=== PATIENT | female | born 1995 | race African-American/Black ===

== ENCOUNTER 2017-01-23 11:41 | Emergency (ER) | payer MEDICAID ==
[2017-01-23 13:25] LABS: BASOPHILS 0.2 % (0-2); EOSINOPHILS 0.3 % (0-7); HEMATOCRIT 33.1 % (36.0-48.0); HEMOGLOBIN 10.7 g/dL (12-16); IMMATURE GRANULOCYTES 0.4 % (0-5); LYMPHOCYTES 13.7 % (15-50); MCH 22.5 pg (26.0-34.0); MCHC 32.3 g/dL (31.0-37.0); MCV 69.7 fL (80.0-100.0); MEAN PLATELET VOLUME 9.9 fL (7.4-10.4); MONOCYTES 13.5 % (2-11); NEUTROPHILS 71.9 % (40-80); PLATELET COUNT 331 10x3/uL (130-400); RBC 4.75 10x6/uL (4.00-5.40); RDW 16.9 % (11.5-14.5); WBC 11.3 10x3/uL (4.8-10.8)
[2017-01-23 13:34] LABS: APPEARANCE CLOUDY (CLEAR); COLOR YELLOW (YELLOW)
[2017-01-23 13:35] LABS: BACTERIA MODERATE /hpf (NONE SEEN); BILIRUBIN NEGATIVE (NEGATIVE); GLUCOSE NEGATIVE (NEGATIVE); KETONE MODERATE mg/dL (NEGATIVE); MUCUS <1+ /lpf (NONE SEEN); NITRITE NEGATIVE (NEGATIVE); PROTEIN TRACE mg/dL (NEGATIVE); RED CELLS - URINE 0-5 /hpf (0-5); YEAST >1+ WITH HYPHAE /hpf (NONE SEEN)
[2017-01-23 13:46] LABS: ALBUMIN 3.6 g/dL (3.4-5.0); ALKALINE PHOSPHATASE 161 U/L (46-116); ALT (SGPT) 218 U/L (10-68); BILIRUBIN - TOTAL 0.63 mg/dL (0.2-1.3); CALC OSMOLALITY 259 mosm/kg (275-300); CALCIUM 9.4 mg/dL (8.5-10.1); CARBON DIOXIDE 24.9 mmol/L (21.0-32.0); CHLORIDE - SERUM 98 mmol/L (98-107); CREATININE - SERUM 0.6 mg/dL (0.6-1.3); GLUCOSE 98 mg/dL (74-106); POTASSIUM - SERUM 3.6 mmol/L (3.5-5.1); PROTEIN - SERUM 8.1 g/dL (6.4-8.2); SODIUM 131 mmol/L (136-145); UREA NITROGEN 5 mg/dL (7-18); eGFR NON AFRICAN AMERICAN > 90 mL/min (90-120)
[2017-01-23 14:08] LABS: HCG - QUANTITATIVE (MATERNAL) 109651 mIU/mL
== END 2017-01-23 13:50 | disposition home or self-care (01) ==
LOC: D.ER 11:41
PROVIDERS: Emergency Medicine; Nurse Practitioner Family
DX: O23.41 Unspecified infection of urinary tract in pregnancy, first trimester (principal); Z3A.09 9 weeks gestation of pregnancy; R11.2 Nausea with vomiting, unspecified

== ENCOUNTER 2017-03-03 13:09 | Emergency (ER) | payer MEDICAID | END 2017-03-03 15:32 | disposition home or self-care (01) | LOC: D.ER 13:09 | DX: S00.81XA Abrasion of other part of head, initial encounter (principal); Y04.2XXA Assault by strike against or bumped into by another person, initial encounter; Y93.89 Activity, other specified; Y92.89 Other specified places as the place of occurrence of the external cause; R51 Headache ==

== ENCOUNTER → 2017-08-10 07:56 | Outpatient (CLI) | payer MEDICAID ==
[2017-08-10 08:45] LABS: APPEARANCE HAZY (CLEAR); BILIRUBIN NEGATIVE (NEGATIVE); COLOR YELLOW (YELLOW); GLUCOSE NEGATIVE (NEGATIVE); KETONE NEGATIVE (NEGATIVE); NITRITE NEGATIVE (NEGATIVE); PROTEIN NEGATIVE (NEGATIVE); UROBILINOGEN NORMAL (NORMAL)
[2017-08-10 08:51] LABS: BACTERIA MODERATE /hpf (NONE SEEN); EPITHELIAL CELLS 0-5 /hpf (0-5); RED CELLS - URINE 0-5 /hpf (0-5)
[2017-08-24 15:32] VITALS: BMI 29.4
== END | disposition home or self-care (01) ==
LOC: D.LDO 07:56
PROVIDERS: Obstetrics & Gynecology
DX: O26.893 Other specified pregnancy related conditions, third trimester (principal); Z3A.37 37 weeks gestation of pregnancy; R10.2 Pelvic and perineal pain; M54.5 Low back pain; R11.2 Nausea with vomiting, unspecified

== ENCOUNTER 2017-08-24 09:24 | Inpatient (IN) | payer MEDICAID ==
[~2017-08-24] VITALS: Ht 175.3 cm; Wt 90.3 kg
[2017-08-24 10:18] VITALS: BP 115/75
[2017-08-24 10:42] LABS: HEMATOCRIT 32.7 % (36.0-48.0); HEMOGLOBIN 10.6 g/dL (12-16); MCH 25.8 pg (26.0-34.0); MCHC 32.4 g/dL (31.0-37.0); MCV 79.6 fL (80.0-100.0); MEAN PLATELET VOLUME 10.5 fL (7.4-10.4); RBC 4.11 10x6/uL (4.00-5.40); RDW 15.3 % (11.5-14.5); WBC 13.9 10x3/uL (4.8-10.8)
[2017-08-24 15:32] VITALS: Ht 175.3 cm; Wt 90.3 kg
[2017-08-24 18:33] LABS: APPEARANCE CLOUDY (CLEAR); BACTERIA MODERATE /hpf (NONE SEEN); BILIRUBIN NEGATIVE (NEGATIVE); COLOR YELLOW (YELLOW); GLUCOSE NEGATIVE (NEGATIVE); KETONE LARGE mg/dL (NEGATIVE); MUCUS <1+ /lpf (NONE SEEN); NITRITE NEGATIVE (NEGATIVE); PROTEIN NEGATIVE (NEGATIVE); RED CELLS - URINE >50 /hpf (0-5); UROBILINOGEN NORMAL (NORMAL)
[2017-08-24 18:36] LABS: UDS - AMPHET NEGATIVE QUAL (NEGATIVE); UDS - BARB NEGATIVE QUAL (NEGATIVE); UDS - BENZO NEGATIVE QUAL (NEGATIVE); UDS - COCAINE NEGATIVE QUAL (NEGATIVE); UDS - OPIATE NEGATIVE QUAL (NEGATIVE); UDS - PCP NEGATIVE QUAL (NEGATIVE); UDS - THC NEGATIVE QUAL (NEGATIVE)
[2017-08-24 21:58] VITALS: BP 106/45
[2017-08-25 04:41] LABS: HEMATOCRIT 29.2 % (36.0-48.0); HEMOGLOBIN 9.4 g/dL (12-16); MCH 25.5 pg (26.0-34.0); MCHC 32.2 g/dL (31.0-37.0); MCV 79.3 fL (80.0-100.0); MEAN PLATELET VOLUME 10.4 fL (7.4-10.4); PLATELET COUNT 248 10x3/uL (130-400); RBC 3.68 10x6/uL (4.00-5.40); RDW 15.4 % (11.5-14.5)
[2017-08-25 04:59] LABS: EOSINOPHILS 1 % (0-7); LYMPHOCYTES 13 % (15-50); MONOCYTES 9 % (2-11); NEUTROPHILS 77 % (40-80); PLATELET ESTIMATE NORMAL
[2017-08-25 07:57] VITALS: BP 100/53
[2017-08-25 19:13] VITALS: BP 121/56
[2017-08-25 19:32] LABS: BASOPHILS 0.1 % (0-2); EOSINOPHILS 0.8 % (0-7); HEMATOCRIT 30.5 % (36.0-48.0); HEMOGLOBIN 9.8 g/dL (12-16); IMMATURE GRANULOCYTES 0.5 % (0-5); LYMPHOCYTES 17.6 % (15-50); MCH 25.7 pg (26.0-34.0); MCHC 32.1 g/dL (31.0-37.0); MCV 79.8 fL (80.0-100.0); MEAN PLATELET VOLUME 10.2 fL (7.4-10.4); MONOCYTES 12.3 % (2-11); NEUTROPHILS 68.7 % (40-80); PLATELET COUNT 258 10x3/uL (130-400); RBC 3.82 10x6/uL (4.00-5.40); RDW 15.5 % (11.5-14.5)
[2017-08-27 07:24] LABS: RAPID PLASMA REAGIN Non Reactive (Non Reactive)
== END 2017-08-25 21:09 | disposition home or self-care (01) | DRG 774 ==
LOC: D.LABREF 09:24 → D.LD 09:31
PROVIDERS: Obstetrics & Gynecology
PROC: 10E0XZZ Delivery of Products of Conception, External Approach (ICD-10-PCS; principal; 2017-08-24)
PROC: 0KQM0ZZ Repair Perineum Muscle, Open Approach (ICD-10-PCS; 2017-08-24)
DX: O42.92 Full-term premature rupture of membranes, unspecified as to length of time between rupture and onset of labor (principal); O98.32 Other infections with a predominantly sexual mode of transmission complicating childbirth; O99.214 Obesity complicating childbirth; Z3A.39 39 weeks gestation of pregnancy; Z37.0 Single live birth

== ENCOUNTER 2018-10-07 08:04 | Emergency (ER) | payer MEDICAID ==
[~2018-10-07] VITALS: Ht 175.3 cm; Wt 86.4 kg
[2018-10-07 08:08] VITALS: Ht 175.3 cm; Wt 86.4 kg
[2018-10-07] MEDS ORDERED: PRENAVITE1 TAB PO (08:09)
[2018-10-07 09:01] LABS: BASOPHILS 0.2 % (0-2); EOSINOPHILS 2.8 % (0-7); HEMATOCRIT 29.6 % (36.0-48.0); HEMOGLOBIN 9.4 g/dL (12-16); IMMATURE GRANULOCYTES 0.1 % (0-5); LYMPHOCYTES 34.2 % (15-50); MCH 21.1 pg (26.0-34.0); MCHC 31.8 g/dL (31.0-37.0); MCV 66.5 fL (80.0-100.0); MEAN PLATELET VOLUME 9.3 fL (7.4-10.4); MONOCYTES 10.6 % (2-11); NEUTROPHILS 52.1 % (40-80); PLATELET COUNT 357 10x3/uL (130-400); RBC 4.45 10x6/uL (4.00-5.40); RDW 17.8 % (11.5-14.5)
[2018-10-07 09:09] LABS: CHLORIDE - SERUM 104 mmol/L (98-107); POTASSIUM - SERUM 3.6 mmol/L (3.5-5.1); SODIUM 137 mmol/L (136-145)
[2018-10-07 09:17] LABS: APPEARANCE HAZY (CLEAR); BACTERIA MODERATE /hpf (NONE SEEN); BILIRUBIN NEGATIVE (NEGATIVE); COLOR YELLOW (YELLOW); GLUCOSE NEGATIVE (NEGATIVE); KETONE NEGATIVE (NEGATIVE); MUCUS <1+ /lpf (NONE SEEN); NITRITE NEGATIVE (NEGATIVE); PROTEIN TRACE mg/dL (NEGATIVE); SPECIFIC GRAVITY 1.015 (1.005-1.020); UROBILINOGEN NORMAL (NORMAL); WHITE CELLS - URINE 0-5 /hpf (0-5)
[2018-10-07 09:19] LABS: CALC OSMOLALITY 269 mosm/kg (275-300); CALCIUM 8.7 mg/dL (8.5-10.1); CARBON DIOXIDE 24.2 mmol/L (21.0-32.0); CREATININE - SERUM 0.6 mg/dL (0.6-1.3); GLUCOSE 88 mg/dL (74-106); HCG - QUANTITATIVE (MATERNAL) 30648 mIU/mL; UREA NITROGEN 5 mg/dL (7-18); eGFR NON AFRICAN AMERICAN > 90 mL/min (90-120)
[2018-10-07] MEDS ORDERED: FERROUS GLUCON324 MG PO (10:16)
[2018-10-07] MEDS ORDERED: MACRODANTIN100 MG PO (10:21)
[2018-10-07 10:29] VITALS: BP 120/70
[2018-10-07 10:39] LABS: % SATURATION 4 % (15-55); IRON 20 ug/dl (35-150); TOTAL IRON BIND CAPACITY 423 ug/dl (260-445); UNSAT IRON BIND CAPACITY 403 ug/dl (150-375)
== END 2018-10-07 10:31 | disposition home or self-care (01) ==
LOC: D.ER 08:04
PROVIDERS: Emergency Medicine
DX: O20.0 Threatened abortion (principal); Z3A.01 Less than 8 weeks gestation of pregnancy; D64.9 Anemia, unspecified; A59.9 Trichomoniasis, unspecified

== ENCOUNTER → 2019-03-27 14:18 | Outpatient (CLI) | payer MEDICAID ==
[2018-10-07 08:08] VITALS: BMI 28.1
[~2019-03-27 14:18] MED LIST: FERROUS GLUCON324 MG PO; MACRODANTIN100 MG PO; PRENAVITE1 TAB PO
[2019-03-27 15:11] LABS: APPEARANCE CLEAR (CLEAR); BILIRUBIN NEGATIVE (NEGATIVE); COLOR YELLOW (YELLOW); GLUCOSE NEGATIVE (NEGATIVE); KETONE NEGATIVE (NEGATIVE); NITRITE NEGATIVE (NEGATIVE); PROTEIN TRACE mg/dL (NEGATIVE); SPECIFIC GRAVITY 1.015 (1.005-1.020); UROBILINOGEN NORMAL (NORMAL)
[2019-03-27 15:14] LABS: BACTERIA FEW /hpf (NEGATIVE); EPITHELIAL CELLS 0-5 /hpf (0-5); RED CELLS - URINE OCC /hpf (0-5); WHITE CELLS - URINE OCC /hpf (NEGATIVE)
== END | disposition home or self-care (01) ==
LOC: D.LDO 14:18
PROVIDERS: ATTEND Obstetrics & Gynecology
DX: O26.899 Other specified pregnancy related conditions, unspecified trimester (principal); Z3A.00 Weeks of gestation of pregnancy not specified; R10.9 Unspecified abdominal pain

== ENCOUNTER 2019-04-07 16:33 | Outpatient (CLI) | payer MEDICAID ==
[2018-10-07 08:08] VITALS: BMI 28.1
[2019-04-08] MEDS ORDERED: FLAGYL500 MG (01:47)
== END 2019-04-07 20:08 | disposition home or self-care (01) ==
LOC: D.LDO 16:33
PROVIDERS: ATTEND Obstetrics & Gynecology
DX: O26.899 Other specified pregnancy related conditions, unspecified trimester (principal); Z3A.00 Weeks of gestation of pregnancy not specified; R19.7 Diarrhea, unspecified

== ENCOUNTER 2019-04-08 00:33 | Inpatient (IN) | payer MEDICAID ==
[~2019-04-08] VITALS: Ht 175.3 cm; Wt 94.8 kg
[2019-04-08] MEDS ORDERED: FLAGYL500 MG (01:47)
[2019-04-08 02:49] VITALS: BP 132/73; Ht 175.3 cm; Wt 94.8 kg
--- NOTE | 2019-04-08 02:57 | NUR ---
ADMISSION ASSESSMENT, HISTORY AND MED REC COMPLETED
[2019-04-08 03:09] LABS: HEMATOCRIT 29.8 % (36.0-48.0); HEMOGLOBIN 9.5 g/dL (12-16); MCH 23.9 pg (26.0-34.0); MCHC 31.9 g/dL (31.0-37.0); MCV 75.1 fL (80.0-100.0); MEAN PLATELET VOLUME 10.6 fL (7.4-10.4); RBC 3.97 10x6/uL (4.00-5.40); WBC 19.4 10x3/uL (4.8-10.8)
--- NOTE | 2019-04-08 03:25 | NUR ---
CONSENT SIGNED AND WITNESS PER THIS RN AND LAURI CARDENAS, RN, PT REQUESTED AND SERVED DEDRICK PEDROZA AND DR ARITA, PT DENIES FURTHER NEEDS, INFANT IN OPEN CRIB CART AT BEDSIDE, PT VISITING WITH FOB AND FRIENDS
--- NOTE | 2019-04-08 03:50 | NUR ---
PT PROJECT ENGINEERING DIRECTOR LIGHT, PT UP TO BR, GAIT STEADY, VOIDED 600 MLS OF LIGHT BLOOD TINGED URINE BY SELF WITH NO DIFFICULTY, PT INST ON AND DEMONSTRATED SARAH CARE, VERBALIZES UNDERSTANDING, ASSISTED PT WITH SARAH PAD AND PANTIES, PT TRANSFERRED BACK TO ROOM 1274, GAIT STEADY, INFANT IN OPEN CRIB CART. CLEAN SHEET AND BLANKET PROVIDED, PT DENIES FURTHER NEEDS, BED IN LOW POSITION, SIDE RAILS X 2, CALL LIGHT IN REACH
--- NOTE | 2019-04-08 04:28 | NUR ---
PT TALKING ON PHONE, DENIES NEEDS OR PAIN AT THIS TIME, INFANT IN OPEN CRIB CART AT BEDSIDE
--- NOTE | 2019-04-08 04:59 | NUR ---
PT CALLED GENETIC COORDINATOR LIGHT REQUESTING PAIN MEDICATION, STATES THAT SHE IS CRAMPING.
--- NOTE | 2019-04-08 05:02 | NUR ---
NO PP ORDERS NOTED, DR LAI PAGED AT THIS TIME.
--- NOTE | 2019-04-08 05:55 | NUR ---
PT AWAKE, INFANT IN OPEN CRIB CART, PT C/O CRAMPING, ADM MOTRIN PER MD ORDERS, SEE EMAR, FF, ML, U/1, LITE BLEEDING WITH NO CLOTS NOTED ON SARAH PAD, PT UP TO BR, GAIT STEADY, VOIDED LIGHT BLOOD TINGED URINE BY SELF WITH NO DIFFICULTY, ASSISTED PT WITH SARAH CARE, SARAH PAD AND PANTIES, PT BACK TO BED, REQUESTED AND SERVED CRANBERRY JUICE, PT INFORMED THAT SHE WILL BE TRANSFERRED TO THE WOMENS UNIT LATER THIS MORNING, PT VERBALIZES UNDERSTANDING, DENIES FURTHER NEEDS, BED IN LOW POSITION, SIDE RAILS X 2, CALL LIGHT IN REACH
--- NOTE | 2019-04-08 06:44 | NUR ---
PT AWAKE AND RESTING, IN OPEN CRIB CART AT BEDSIDE, PT DENIES NEEDS OR PAIN AT THIS TIME, STATES "I FEEL MUCH BETTER"
--- NOTE | 2019-04-08 07:20 | NUR ---
AM ASSESSMENT COMPLETED CHARTED ON FLOWSHEET. PT RATES PAIN AT 0/10. SALINE LOCK TO R FOREARM NOTED TO BE SLIGHTLY SWOLLEN AND PT COMPLAINS OF TENDERNESS WITH TOUCH, UNABLE TO FLUSH, SALINE LOCK REMOVED WITH CATH INTACT. FUNDUS FIRM AT U/U WITH LIGHT BLEEDOING NOTED WITHOUT CLOTS. INFANT IN CRIB AT BEDSIDE. PT DENIES NEEDS AT THIS TIME.
--- NOTE | 2019-04-08 10:45 | NUR ---
PAIN MED GIVEN SCANNED TO EMAR FOR PT COMPLAINT OF PRESSURE AND BURNING DURING VOIDS. IN CRIB AT BEDSIDE WITH FAMILY MEMBERS PRESENT. DENIES ANY OTHER NEEDS AT THIS TIME.
--- NOTE | 2019-04-08 11:30 | NUR ---
large cup of ice per request. pt also asking for help feeding , nursery nurse notified.
--- NOTE | 2019-04-08 12:30 | NUR ---
pt transferred to room 1222 with report given to Leni Goins rn. dietary notified per pt request for additional lunch tray stating she is still hungry. Nursery notified of room change.
[2019-04-08 13:00] VITALS: BP 97/57
--- NOTE | 2019-04-08 13:00 | NUR ---
PT SITTING UP IN BED. PT TALKING ON PHONE. VSS. FUNDUS FIRM AT U/1. RUBRA LOCHIA SMALL AMT. PT DENIES PASSING LARGE CLOTS OR HEAVY BLEEDING. INSTRUCTED TO NOTIFY NURSE IF PASSES CLOT THE SIZE OF EGG OR BIGGER OR SOAKS PAD IN ONE HOUR. VERBALIZES UNDERSTANDING.
--- NOTE | 2019-04-08 13:15 | NUR ---
PT C/O ABDOMINAL CRAMPING. MOTRIN 600 MG GIVEN PO ORDERED. PT ALSO PROVIDED LINENS AND TOILETRIES FOR SHOWER. ALSO PROVIDED CUP OF ICE.
--- NOTE | 2019-04-08 14:20 | NUR ---
PT UP TO SHOWER.
--- NOTE | 2019-04-08 14:50 | NUR ---
PT AT DESK. STATES CALL LIGHT NOT WORKING. THIS NURSE TO ROOM. CALL LIGHT NOT WORKING. ENGINEERING STAFF NOTIFIED AND WORK ORDER PLACED. PHONE NUMBER TO HAND HELD [employer] PHONE PUT ON PT BOARD AND INSTRUCTED PT TO CALL ON PHONE FOR NURSE. VERBALIZES UNDERSTANDING.
--- NOTE | 2019-04-08 15:13 | NUR ---
PT REQUESTS AND RECEIVES ICE PACK.
--- NOTE | 2019-04-08 16:03 | NUR ---
PT PROVIDED DERMAPLAST SPRAY AND TUCKS FOR PERINEUM. PT INSTRUCTED ON MEDS. VERBALIZES UNDERSTANDING.
--- NOTE | 2019-04-08 18:41 | NUR ---
PT OOB AND AMB TO BR. VOIDS LARGE AMT OF BLOOD-TINGED URINE. SMALL CLOT NOTED IN COMMODE. PERICARE DONE PER PT. TUCKS AND DERMAPLAST TO PT PERINEUM. PANTIES AND PAD CHANGED. PT AMBULATORY IN ROOM. KELLEE ACTIVITY WELL.
--- NOTE | 2019-04-08 19:17 | NUR ---
PM ROUNDS MADE, PT TALKING ON PHONE, INFORMED PT THAT I WILL BE BACK SHORTLY TO DO ASSESSMENT, PT VERBALIZES UNDERSTANDING, DENIES NEEDS OR PAIN AT THIS TIME, IN OPEN CRIB CART AT BEDSIDE
--- NOTE | 2019-04-08 20:25 | NUR ---
PT REPORTS NEEDING TO GO TO FRONT DOOR TO MEET FOB AND OTHER CHILD AT THIS TIME, GAIT STEADY, REMY LANCASTER, RN UNIT WITH INFANT
--- NOTE | 2019-04-08 20:28 | NUR ---
PT BACK ON UNIT, BACK TO ROOM WITH PT, FOB AND OTHER CHILD WITH HER
[2019-04-08 21:30] VITALS: BP 108/37
--- NOTE | 2019-04-08 21:30 | NUR ---
ASSESSMENT PER FLOW SHEET, VS OBTAINED, PT REPORTS FLATUS, NO BM, VOIDING WITH NO DIFFICULTY, AND LIGHT BLEEDING WITH NO CLOTS, PT INST ON AND VERBALIZES UNDERSTANDING OF SARAH CARE, PT DENIES NEEDS OR PAIN AT THIS TIME, IN OPEN CRIB CART AT BEDSIDE
--- NOTE | 2019-04-08 22:41 | NUR ---
PT AWAKE, HOLDING INFANT, C/O CRAMPING, ADM MOTRIN PER MD ORDERS, SEE EMAR, DENIES FURTHER NEEDS
--- NOTE | 2019-04-08 23:30 | NUR ---
PT RESIDENTIAL GLAZIER LIGHT, PT UP IN BR HAVING BM, BACK TO NSY AT THIS TIME, ASSISTED PT WITH SARAH CARE, PT REQUESTS PAIN MED, PT INST TO USE CALL LIGHT WHEN FINISHED OR FOR ANY OTHER NEEDS AT THIS TIME, PT VERBALIZES UNDERSTANDING
--- NOTE | 2019-04-08 23:55 | NUR ---
PT RUG SIZER LIGHT, PT BACK IN BED HOLDING , PT REPORTS WALKING TO NSY TO OBTAIN INFANT, ADM NORCO PER MD ORDERS, SEE EMAR, PT REQUESTED AND SERVED SANDWICH TRAY, DENIES FURTHER NEEDS
--- NOTE | 2019-04-09 00:45 | NUR ---
PT HOLDING INFANT, TALKING ON PHONE, DENIES NEEDS OR PAIN AT THIS TIME
--- NOTE | 2019-04-09 02:23 | NUR ---
PT AWAKE, HOLDING INFANT, INFORMED PT THAT I AM TAKING INFANT TO NSY FOR LAB WORK AND HEARING SCREEN, PT VERBALIZES UNDERSTANDING, DENIES NEEDS OR PAIN AT THIS TIME
[2019-04-09 02:39] VITALS: BP 127/63
--- NOTE | 2019-04-09 02:39 | NUR ---
PT TERRAZZO HELPER LIGHT, REPORTS SHE IS FINISHED FILLING OUT NSY PAPERWORK, VS OBTAINED, FRESH H20 SERVED, DENIES FURTHER NEEDS OR PAIN AT THIS TIME
--- NOTE | 2019-04-09 03:47 | NUR ---
PT AWAKE, LOOKING AT CELL PHONE, REPORTS BM, C/O CRAMPING, ADM NORCO PER MD ORDERS, SEE EMAR, PT DENIES FURTHER NEEDS
--- NOTE | 2019-04-09 04:44 | NUR ---
PT RESTING WITH EYES CLOSED, RESP QUIET, NO DISTRESS NOTED, LEFT UNDISTURBED AT THIS TIME
--- NOTE | 2019-04-09 05:45 | NUR ---
INFANT TO ROOM VIA OPEN CRIB CART PER REMY LANCASTER RN
[2019-04-09 06:09] LABS: RAPID PLASMA REAGIN Non Reactive (Non Reactive)
[2019-04-09 07:29] LABS: BASOPHILS 0.2 % (0-2); EOSINOPHILS 1.9 % (0-7); HEMATOCRIT 27.6 % (36.0-48.0); HEMOGLOBIN 8.5 g/dL (12-16); IMMATURE GRANULOCYTES 0.7 % (0-5); LYMPHOCYTES 28.3 % (15-50); MCH 23.7 pg (26.0-34.0); MCHC 30.8 g/dL (31.0-37.0); MCV 76.9 fL (80.0-100.0); MEAN PLATELET VOLUME 10.4 fL (7.4-10.4); MONOCYTES 7.5 % (2-11); NEUTROPHILS 61.4 % (40-80); PLATELET COUNT 231 10x3/uL (130-400); RBC 3.59 10x6/uL (4.00-5.40); RDW 17.6 % (11.5-14.5); WBC 18.8 10x3/uL (4.8-10.8)
[2019-04-09 07:46] LABS: ALBUMIN 2.1 g/dL (3.4-5.0); ALKALINE PHOSPHATASE 135 U/L (30-120); ALT (SGPT) 22 U/L (10-68); BILIRUBIN - TOTAL 0.15 mg/dL (0.2-1.3); CALC OSMOLALITY 276 mosm/kg (275-300); CARBON DIOXIDE 26.6 mmol/L (21.0-32.0); CHLORIDE - SERUM 107 mmol/L (98-107); CREATININE - SERUM 0.7 mg/dL (0.6-1.3); GLUCOSE 76 mg/dL (74-106); POTASSIUM - SERUM 4.4 mmol/L (3.5-5.1); PROTEIN - SERUM 5.5 g/dL (6.4-8.2); SODIUM 140 mmol/L (136-145); UREA NITROGEN 11 mg/dL (7-18); eGFR NON AFRICAN AMERICAN > 90 mL/min (90-120)
--- NOTE | 2019-04-09 08:00 | NUR ---
SITTING UP EATING BREAKFAST. AT BEDSIDE IN OPEN CRIB. NO COMPLAINTS OR NEEDS AT THIS TIME.
--- NOTE | 2019-04-09 09:30 | NUR ---
C/O PAIN, UTERINE CRAMPING. MOTRIN GIVEN.
[2019-04-09 10:30] VITALS: BP 100/61
--- NOTE | 2019-04-09 10:30 | NUR ---
ASSESSMENT COMPLETE. SEE FLOWSHEET. FUNDUS FIRM 2 BELOW UMBILICUS. FLOW SCANT, RUBRA.
--- NOTE | 2019-04-09 11:30 | NUR ---
INFORMED PT THAT A CLEAN CATCH URINE SAMPLE IS NEEDED PER ORDER OF DR. THORNE. INSTRUCTED PT. ON PROCEDURE TO OBTAIN SAMPLE. CUP AND SARAH-WIPE PLACED IN BATHROOM. PT. STATES UNDERSTANDING.
--- NOTE | 2019-04-09 12:40 | NUR ---
URINE SAMPLE OBTAINED AND SENT TO LAB.
[2019-04-09 13:14] LABS: APPEARANCE CLEAR (CLEAR); BILIRUBIN NEGATIVE (NEGATIVE); COLOR STRAW (YELLOW); GLUCOSE NEGATIVE (NEGATIVE); KETONE NEGATIVE (NEGATIVE); NITRITE NEGATIVE (NEGATIVE); PROTEIN TRACE mg/dL (NEGATIVE); UROBILINOGEN NORMAL (NORMAL)
[2019-04-09 13:15] LABS: BACTERIA FEW /hpf (NEGATIVE); EPITHELIAL CELLS OCC /hpf (0-5); RED CELLS - URINE 0-5 /hpf (0-5); WHITE CELLS - URINE 0-5 /hpf (NEGATIVE)
[2019-04-09 13:18] LABS: UDS - AMPHET NEGATIVE QUAL (NEGATIVE); UDS - BARB NEGATIVE QUAL (NEGATIVE); UDS - BENZO NEGATIVE QUAL (NEGATIVE); UDS - COCAINE NEGATIVE QUAL (NEGATIVE); UDS - OPIATE POSITIVE QUAL (NEGATIVE); UDS - PCP NEGATIVE QUAL (NEGATIVE); UDS - THC NEGATIVE QUAL (NEGATIVE)
--- NOTE | 2019-04-09 15:12 | NUR ---
PT RESTING IN BED WATCHING TELEVISION WITH IN ARMS. OFFERED MOTRIN FOR PAIN. DECLINED AT THIS TIME STATING, "I AM NOT CRAMPING RIGHT NOW".
--- NOTE | 2019-04-09 17:00 | NUR ---
SITTING UP IN BED EATING DINNER. REQUESTING PAIN MEDICINE. MOTRIN GIVEN.
--- NOTE | 2019-04-09 18:12 | NUR ---
PT UP TO SHOWER. LINENS CHANGED.
--- NOTE | 2019-04-09 18:35 | NUR ---
OUT OF SHOWER. UP WALKING IN ROOM. STATES HAVING NO PAIN AT THIS TIME.
--- NOTE | 2019-04-09 19:15 | NUR ---
REPORT WAS GIVEN BY ESME LOWE. PT IS DOING WELL. VAG DELIVERY AT HOME ON 04/08/19. AMBULATORY AND IS NOT C/O PAIN AT THIS TIME.
--- NOTE | 2019-04-09 20:05 | NUR ---
ASSESSMENT COMPLETED. HEART TONES NORMAL WITH NO MURMUR. LUNGS ARE CLEAR IN ALL GEORGE. BOWEL SOUNDS ARE HEARD. PT IS IN NO PAIN AT THIS TIME. fUNDUS IS FIRM, AND BLEEDING SMALL AMT. PT IS UP AD KAN IN HER ROOM AND HALLWAYS NO C/O NOW. BABY IS IN THE ROOM AND BABY AND MOM ARE BONDING.
--- NOTE | 2019-04-09 21:05 | NUR ---
PT IS IN HER ROOM EATING WITH THE FOB. BABY CONT TO BE IN ROOM WITH PARENTS. NO C/O AT THIS TIME.
--- NOTE | 2019-04-09 22:00 | NUR ---
MOM AND BABY WATCHING TV. NO C/O
[2019-04-09 23:14] VITALS: BP 86/59
--- NOTE | 2019-04-10 00:25 | NUR ---
PT REQUEST PAIN MEDS FOR CRAMPS. SHE RECEIVED MOTRIN 600 MG PO AT THIS TIME.
--- NOTE | 2019-04-10 01:15 | NUR ---
PT STATES PAIN HAS BECOME BETTER SINCE MOTRIN. NO C/O NOW. BABY WITH MOM.
--- NOTE | 2019-04-10 02:10 | NUR ---
PT REQUESTED A SANDWICH. THIS WAS TAKEN TO HER ALONG WITH FREST ICE WATER.
--- NOTE | 2019-04-10 04:00 | NUR ---
PT IS RESTING QUIETLY IN BED. NO C/O AT THIS TIME.
--- NOTE | 2019-04-10 06:37 | NUR ---
PT CONT. TO REST WELL. NO C/O.
--- NOTE | 2019-04-10 07:45 | NUR ---
PT A&A C/O AT THIS TIME SITTING UP IN BED.PT C/O OF PAIN SEE EMAR FOR MEDS GIVEN.
[2019-04-10 07:49] VITALS: BP 102/57
--- NOTE | 2019-04-10 08:07 | NUR ---
PT A&A W/ NO C/O AT THIS TIME SITTING UP IN BED. PT STATES PAIN MEDS ARE HELPING.
--- NOTE | 2019-04-10 09:30 | NUR ---
PT A&A W/ NO C/O AT THIS TIME SITTING UP IN BED.
--- NOTE | 2019-04-10 10:00 | NUR ---
PT RESTING W/ EYES CLOSED AT THIS TIME.
--- NOTE | 2019-04-10 10:47 | NUR ---
WRITTEN & VERBAL D/C INSTRUCTIONS REVIEWED W/ PT. PT VOICED UNDERSTNADING OF ALL INSTRUCTIONS, RX'S GIVEN AT THIS TIME.
--- NOTE | 2019-04-10 12:00 | NUR ---
PT AMBULATED OFF UNIT IN STABLE CONDITION W/ NO S/S OF DISTRESS.
[2019-04-11 19:08] LABS: UDSC - AMPHET Negative ng/mL (Cutoff=1000); UDSC - BARB Negative ng/mL (Cutoff=300); UDSC - BENZO Negative ng/mL (Cutoff=300); UDSC - COC Negative ng/mL (Cutoff=300); UDSC - METH Negative ng/mL (Cutoff=300); UDSC - OPIATES Negative (Cutoff=300); UDSC - PCP Negative ng/mL (Cutoff=25); UDSC - PROPOXY Negative ng/mL (Cutoff=300); UDSC - THC Negative ng/mL (Cutoff=50)
== END 2019-04-10 12:00 | disposition home or self-care (01) | DRG 776 ==
LOC: D.ER 00:33 → D.LD 00:38 → D.WS 12:25
PROVIDERS: Family Medicine; ADMIT Obstetrics & Gynecology; ATTEND Obstetrics & Gynecology
PROC: 0HQ9XZZ Repair Perineum Skin, External Approach (ICD-10-PCS; principal; 2019-04-08)
DX: O70.0 First degree perineal laceration during delivery (principal); O99.824 Streptococcus B carrier state complicating childbirth; Z3A.38 38 weeks gestation of pregnancy; Z37.0 Single live birth

== ENCOUNTER 2019-10-20 17:43 | Emergency (ER) | payer MEDICAID ==
[~2019-10-20] VITALS: Ht 175.3 cm; Wt 92.3 kg
[~2019-10-20 17:43] MED LIST changes: +FLAGYL500 MG
[2019-10-20 18:19] VITALS: Ht 175.3 cm; Wt 92.3 kg
[2019-10-20 18:45] LABS: BILIRUBIN NEGATIVE (NEGATIVE); GLUCOSE NEGATIVE (NEGATIVE); KETONE LARGE mg/dL (NEGATIVE); NITRITE NEGATIVE (NEGATIVE); UROBILINOGEN NORMAL (NORMAL)
[2019-10-20 18:47] LABS: EPITHELIAL CELLS 0-5 /hpf (0-5); RED CELLS - URINE OCC /hpf (0-5)
[2019-10-20 18:48] LABS: BACTERIA FEW /hpf (NEGATIVE); HCG URINE POSITIVE (NEGATIVE); WHITE CELLS - URINE 0-5 /hpf (NEGATIVE)
[2019-10-20] MEDS ORDERED: MACROBID100 MG PO (20:30)
[2019-10-20 20:48] VITALS: BP 158/79
== END 2019-10-20 20:49 | disposition home or self-care (01) ==
LOC: D.ER 17:43
PROVIDERS: Family Medicine
DX: O23.41 Unspecified infection of urinary tract in pregnancy, first trimester (principal); Z3A.01 Less than 8 weeks gestation of pregnancy